=== PATIENT | female | born 1955 | race Caucasian/White ===

== ENCOUNTER 2016-05-13 13:03 | Emergency (ER) | payer BC, OTHER ==
[~2016-05-13] VITALS: Wt 74.0 kg
[~2016-05-13 13:03] MED LIST: tylenol
--- NOTE | 2016-05-13 13:40 | ERD ---
ER Documentation Chief Complaint Date/Time DATE: 05/13/16 TIME: 13:34 Chief Complaint LEFT WRIST PAIN AFTER FALL YESTERDAY HPI 60-year-old female presents to the emergency room for left wrist pain, forearm pain. Daughter stated that she had a mechanical fall yesterday between 7:53 PM. Landed on her left upper arm. Denies headache, head injury, loss of consciousness, dizziness, dizziness prior to fall, blurry vision, changes in vision, photophobia, facial pain, ear pain, throat pain, difficulty swallowing, neck pain, shoulder pain, chest pain, cough , hemoptysis, abdominal pain, back pain, loss of appetite, nausea, vomiting, hematochezia, diarrhea, constipation, urinary symptoms, , the possibility of being , bladder and bowel incontinences, numbness or tingling sensation, difficulty walking, recent travel, recent exposure to illness, recent antibiotic use in the last 3 months, fever, chills. Allergy: NKDA. PMH: "ear problem with surgeries in both ears." Family medical history: A3 Medications: Paroxetine, baclofen, tramadol, meclizine, alendronate. Surgery:Bilateral ear surgery. Primary Social History: Retired. Denies smoking, use of alcohol, use of illegal drugs. ROS All systems reviewed and are negative except as per history of present illness. Medications Home Meds Reported Medications [tylenol] No Conflict Check 04/09/13 Allergies Allergies: Coded Allergies: No Known Allergy (Unverified , 04/09/13) PMhx/Soc History of Surgery: Yes (/APPY/MINOR FOOT SX/LT MASTECTOMY/EAR IMPLANT ) Anesthesia Reaction: No Hx Neurological Disorder: No Hx Respiratory Disorders: No Hx Cardiac Disorders: No Hx Psychiatric Problems: No Hx Miscellaneous Medical Probl: No Hx Alcohol Use: Yes (SOCIALLY) Hx Substance Use: No Hx Tobacco Use: No Physical Exam Vitals Vital Signs Date Time Temp Pulse Resp B/P Pulse Ox O2 Delivery O2 Flow Rate FiO2 05/13/16 13:08 98.0 98 18 125/78 99 Physical Exam CONSTITUTIONAL: Well-appearing; well-nourished; in no apparent distress. HEAD: Normocephalic; atraumatic. EYES: Conjunctiva clear, sclera non-icteric, EOM intact. PERRL Ears: Hearing intact. EACs clear, TMs non-bulging, non-inflamed, translucent & mobile, ossicles normal appearance, No obstructions, no erythema, no discharges Nose: No obstructions. No polyps. No external lesions. Mucosa non-inflamed. No external lesions, septum and turbinates normal. No rhinorrhea. No discharges. Frontal sinus is non-tender to palpation. Maxillary sinus is non-tender to palpation. MOUTH: Moist mucous membranes, no lesion, no obstructions, no vesicles, no thrush, patent airway Throat: Uvula in midline. Right tonsil is +1 with no erythema, no exudate. Left tonsil is +1 with no erythema, no exudate. Tolerating secretions well. Good gag reflex. Patent airway. Neck: Supple, without lesions, bruits, or adenopathy. No mass. Thyroid non- enlarged and non-tender to palpation. CHEST: Symmetrical chest. Respirations even and not labored. No retractions noted. CARDIOVASCULAR: Normal S1, S2. RRR. No murmurs, gallops. RESPIRATORY: Normal chest excursion with respiration; breath sounds clear and equal bilaterally; no wheezes, rhonchi, or rales. Breathing even and unlabored. Speaking in clear, full, and complete sentences w/ ease. ABDOMEN: Normal bowel sounds normal. Soft, round, non-distended, non-guarding, no tenderness, no rebound, no organomegaly, no masses, no pulsating abdominal mass. No hernia. No peritoneal signs. : No CVA tenderness. BACK: Symmetrical shoulder. Spine is midline without deformity, tenderness. No evidence of trauma or deformity. PELVIS: Stable pelvis. No evidence of trauma or deformity. MUSCULOSKELETAL: Normal gait and station. No misalignment, asymmetry, crepitation, defects, tenderness, masses, effusions, decreased range of motion, instability, atrophy or abnormal strength or tone in the head, neck, spine, ribs , pelvis or extremities except left forearm/wrist area swelling and tenderness to palpation with no discoloration. Radial pulses present. Has full function of left fingers on flexion and extension with a score of 5/5. Circulation and sensation is intact. No neurovascular deficit. Left elbow is unremarkable. Left shoulder is unremarkable. Good and full range of motion of neck and spine without pain/difficulty/discomfort. Left upper extremity is unremarkable. No calf tenderness. NEUROVASCULAR: Distal pulses are present. Pedal pulse are present, equal, and normal. Capillary refills are < 2 seconds. NEUROLOGIC: Alert and oriented x4. Speaks full and clear sentences. Cranial Nerves II-XII normal. Sensation to pain, touch, and proprioception normal. Grossly unremarkable. No neurologic deficits. Romberg test is negative. PSYCHOLOGICAL: The patients mood and manner are appropriate. No hallucinations , delusions. Not SI. Not HI. Has the capacity to decide for self SKIN: Normal for age and ethnicity; warm; dry; good turgor; no apparent lesions or exudates. No rashes, hives, discoloration. Intact. Procedures/MDM Examination: Please see physical examination. Disease process, medical treatment was explained to the patient and family member. They verbalized understanding and agreed with the diagnostic tests, medical treatment, and follow-up care. Radiology: Left forearm x-ray: Impression: Impacted fracture of the distal left radius. Left hand x-ray: Impression: Impacted fracture of the distal left radius. Mild soft tissue swelling around the wrist. Treatment: Volar splint to left hand. Re-evaluation: No neurovascular deficits prior to and after the application of splint. Consultation: None. Differential diagnosis: Fracture versus contusion versus sprain Medical decision makin-year-old female presents to the emergency room for left wrist pain, forearm pain. Daughter stated that she had a mechanical fall yesterday between 7:53 PM. Landed on her left upper arm. Patient's complaint, daughters' history about the patient's complaint, patient's presentation, my physical findings, diagnostic test results are consistent with my final diagnosis of Medications prescribed are the following: Patient and family member are made aware of the side effects and adverse reactions of the medications prescribed. Instructed on when to seek emergent and medical attention in case allergic/anaphylactic reactions or severe side effects and or adverse reactions to medications. Patient and family member verbalized understanding. Patient instructed Instructed to follow-up with his PCP in 24-48 hours. PCP to refer patient to orthopedic doctor in the next 24-48 hours. Referral given. Instructed to Call 911 for chest pain, shortness of breath. Advised to come back here in ED as soon as possible for severity of symptoms which includes but not limited to: any new symptoms; shortness of breath/difficulty of breathing; cardiovascular changes; severe gastrointestinal symptoms; signs and symptoms of bleeding and or infection; signs of compartment syndrome/neurovascular changes; neurological changes/deficits. Patient and family member verbalized understanding. Upon discharge, patient is alert and oriented x 4, speaks full and clear sentences, denies pain, has no neurological deficits, has no neurovascular deficits, difficulty of breathing. Breathing even and unlabored. Lung sounds are clear to auscultation. Not in distress. Appears comfortable. Ambulatory with steady gait. Appears satisfied with care provided here in ED. Departure Diagnosis: Primary Impression: Fracture Additional Impression: Wrist fracture Condition: Good Additional Instructions: Instructed to follow-up with his PCP in 24-48 hours. PCP to refer patient to orthopedic doctor in the next 24-48 hours. Instructed to Call 911 for chest pain, shortness of breath. Advised to come back here in ED as soon as possible for severity of symptoms which includes but not limited to: any new symptoms; shortness of breath/difficulty of breathing; cardiovascular changes; severe gastrointestinal symptoms; signs and symptoms of bleeding and or infection; signs of compartment syndrome/neurovascular changes; neurological changes/deficits. Patient and family member verbalized understanding. DESTINY CONKLIN May 13, 2016 13:40
--- NOTE | 2016-05-13 14:06 | RADRPT ---
PROCEDURE: XR Forearm. CLINICAL INDICATION: Pain. Injury. TECHNIQUE: AP and lateral views of the left forearm were obtained. COMPARISON: No prior studies are available for comparison. FINDINGS: There is an impacted fracture of the distal left radius, without definite intra-articular extension of fracture. The joint spaces are maintained. The bony mineralization is normal. The soft tissues are unremarkable. IMPRESSION: 1. Impacted fracture of the distal left radius. RPTAT: QQ .Colin Kaur MD, MD Date Time Electronically viewed and signed by .Colin Kaur MD, MD on 05/13/2016 14:06 .M/
--- NOTE | 2016-05-13 14:07 | RADRPT ---
PROCEDURE: XR Hand. CLINICAL INDICATION: Trauma, pain TECHNIQUE: Three views of the right hand were obtained. COMPARISON: No prior studies are available for comparison. FINDINGS: There is no displaced, impacted fracture of the distal left radius with 3 mm dorsal displacement dis elio fracture fragment. No definite intra-articular extension identified. The joint spaces are maintained. Bony mineralization is normal. There is mild soft tissue swelling around the wrist. No radiopaque foreign body identified. IMPRESSION: 1. Impacted fracture of the distal left radius. 2. Mild soft tissue swelling around the wrist. RPTAT: QQ .Colin Kaur MD, Date Time Electronically viewed and signed by .Colin Kaur MD, on 05/13/2016 14:07 .[place]
== END 2016-05-13 15:15 | disposition home or self-care (01) ==
LOC: FTE 13:03
DX: S52.502A Unspecified fracture of the lower end of left radius, initial encounter for closed fracture (principal); W18.39XA Other fall on same level, initial encounter; Y92.9 Unspecified place or not applicable
CPT/HCPCS: 29125; 73090; 73130; Z7502